=== PATIENT | female | born 1985 | race Caucasian/White ===

== ENCOUNTER 2020-02-14 21:27 | Emergency (ER) | payer OTHER ==
[2020-02-14 21:43] VITALS: BP 161/86; PULSE 94; RESP 18; TEMP 99.1
[2020-02-14] MEDS ORDERED: AMOXIC-POT CLAV 875-125MG 1 EACH TAB PO STA (22:09)
--- NOTE | 2020-02-14 23:22 | XR ---
EXAMINATION TYPE: XR hand complete bilateral DATE OF EXAM: 02/14/2020 COMPARISON: NONE HISTORY: Cat scratches TECHNIQUE: 6 views FINDINGS: 3 views of each hand were obtained. I see no fracture nor dislocation. Joint spaces are nor mal. There are no pathologic calcifications. There is no sign of radiopaque foreign body. There are n o erosions. IMPRESSION: Negative bilateral hand exam. No fracture.
--- NOTE | 2020-02-14 23:35 | ED ---
Animal Bite HPI - General Chief Complaint: Animal Bite Stated Complaint: Cat scratches Time Seen by Provider: 02/14/20 21:45 Source: patient Mode of arrival: ambulatory Limitations: no limitations - History of Present Illness Initial Comments: The patient is a 35-year-old female with no past medical she presents emergency department after she was bit by her cat. She states that she was taking it for a walk. Cat was scared and began to panic. She attempted to pick her up and that was when he began biting and scratching her bilateral hands. Reports to swelling of her left index finger. Continues to have full normal range of motion. No fevers. Denies taking any medications at home for her symptoms. Cat is up-to-date on its immunizations. Patient is right-hand dominant. There are no alleviating, precipitating or modifying factors - Related Data Previous Rx's Medication Instructions Recorded Amoxicillin/Potassium Clav 1 tab PO Q12HR #20 tab 02/14/20 [Augmentin 875-125 Tablet] Allergies Allergy/AdvReac Type Severity Reaction Status Date / Time No Known Allergies Allergy Verified 02/14/20 21:40 Review of Systems ROS Statement: Those systems with pertinent positive or pertinent negative responses have been documented in the HPI. ROS Other: All systems not noted in ROS Statement are negative. Past Medical History Past Medical History: No Reported History History of Any Multi-Drug Resistant Organisms: None Reported Additional Past Surgical History / Comment(s): cyst removal on LT foot Past Psychological History: No Psychological Hx Reported Smoking Status: Current every day smoker Past Alcohol Use History: None Reported Past Drug Use History: Marijuana General Exam Limitations: no limitations General appearance: alert, in no apparent distress Eye exam: Present: normal appearance, PERRL, EOMI. Absent: scleral icterus, conjunctival injection, periorbital swelling Respiratory exam: Present: normal lung sounds bilaterally. Absent: respiratory distress, wheezes, rales, rhonchi, stridor Cardiovascular Exam: Present: regular rate, normal rhythm, normal heart sounds. Absent: systolic murmur, diastolic murmur, rubs, gallop, clicks Extremities exam: Present: other (multiple abrasions to bilateral dorsal hands. Puncture site left index finger with associated swelling. Compartments are soft. No associated erythema or red streaking to the digits. Intact full ROM of all digits on both hands. No signs of tenosynovitis. 2+ radial and ulnar pusles. Intact sensation in the median, radial, ulnar distributions) Course Vital Signs 02/14/20 21:40 Temperature 99.1 F Pulse Rate 94 Respiratory 18 Rate Blood Pressure 161/86 O2 Sat by Pulse 100 Oximetry Medical Decision Making - Medical Decision Making Upon arrival the patient is placed in room 23. A thorough history and physical was performed. Patient's wounds were cleansed with normal saline. She was given a dose of Augmentin. X-rays performed of the bilateral hands to rule out any retained foreign body. X-rays were negative. Patient demonstrates no signs of tenosynovititis. At this time the patient will be discharged home. Strict return and discussed the patient. Tetanus is up-to-date. Helped up with her doctor in 2 days. Return to the emergency department for any new or worsening symptoms. Patient discharged home to condition Disposition Clinical Impression: Cat bite Disposition: HOME SELF-CARE Condition: Stable Instructions (If sedation given, give patient instructions): Animal Bite (ED) Additional Instructions: Please follow-up with your care doctor in 2-4 days. Return to the emergency department if your swelling gets worse with antibiotics Prescriptions: Amoxicillin/Potassium Clav [Augmentin 875-125 Tablet] 1 tab PO Q12HR #20 tab Is patient prescribed a controlled substance at d/c from ED?: No Referrals: None,Stated [Primary Care Provider] - 1-2 days Time of Disposition: 23:34
== END 2020-02-14 23:43 | disposition home or self-care (01) ==
LOC: EC 21:27
DX: S60.512A Abrasion of left hand, initial encounter (principal); S60.511A Abrasion of right hand, initial encounter; F17.200 Nicotine dependence, unspecified, uncomplicated; W55.03XA Scratched by cat, initial encounter; W55.01XA Bitten by cat, initial encounter; Y93.K1 Activity, walking an animal
CPT/HCPCS: 99283

== ENCOUNTER 2022-06-23 08:51 | Emergency (ER) | payer BC, OTHER ==
[2022-06-23 08:59] VITALS: BP 131/84; PULSE 80; RESP 18; TEMP 98.1
[2022-06-23] MEDS ORDERED: HYDROcodone/APAP 5-325MG 1 EACH TAB PO STA (09:17)
[2022-06-23] MEDS ORDERED: ACET/COD 300 MG/30 MG STARTER PACK 6 TAB BTL PO STA (09:17)
--- NOTE | 2022-06-23 09:20 | ED ---
ENT HPI - General Chief complaint: ENT Stated complaint: Facial abscess Time Seen by Provider: 06/23/22 09:00 Source: patient, RN notes reviewed Mode of arrival: ambulatory Limitations: no limitations - History of Present Illness Initial comments: 37-year-old female presents emergency Department with chief complaint of facial swelling, abscess. Patient states that she has dental pain and cervical days ago. Since worsen. Patient states that she has bad tooth and left upper. She states the swelling really increased over nighttime. Patient's current pain 03/21 patient has ALLERGY to Keflex no other ALLERGIES noted. - Related Data Previous Rx's Medication Instructions Recorded Amoxicillin/Potassium Clav 1 tab PO Q12HR #20 tab 02/14/20 [Augmentin 875-125 Tablet] Ibuprofen [Motrin] 600 mg PO Q8HR PRN #30 tab 06/23/22 Penicillin V Potassium [Pen Vee K] 500 mg PO QID #40 tablet 06/23/22 Allergies Allergy/AdvReac Type Severity Reaction Status Date / Time cephalexin [From Keflex] Allergy Nausea & Verified 06/23/22 08:59 Vomiting Review of Systems ROS Statement: Those systems with pertinent positive or pertinent negative responses have been documented in the HPI. ROS Other: All systems not noted in ROS Statement are negative. Past Medical History Past Medical History: No Reported History Additional Past Medical History / Comment(s): dermatomyositis History of Any Multi-Drug Resistant Organisms: None Reported Additional Past Surgical History / Comment(s): cyst removal on LT foot Past Psychological History: No Psychological Hx Reported Smoking Status: Current every day smoker Past Alcohol Use History: None Reported Past Drug Use History: Marijuana General Exam Limitations: no limitations General appearance: alert, in no apparent distress Head exam: Present: atraumatic, normocephalic, normal inspection ENT exam: Present: mucous membranes moist. Absent: normal exam, normal oropharynx (poor dentition, left upper swelling, dental erosion no drainable abscess) Neck exam: Present: normal inspection, full ROM. Absent: tenderness, meningismus, lymphadenopathy Respiratory exam: Present: normal lung sounds bilaterally. Absent: respiratory distress, wheezes, rales, rhonchi, stridor Cardiovascular Exam: Present: regular rate, normal rhythm, normal heart sounds. Absent: systolic murmur, diastolic murmur, rubs, gallop, clicks Course Vital Signs 06/23/22 08:56 Temperature 98.1 F Pulse Rate 80 Respiratory 18 Rate Blood Pressure 131/84 O2 Sat by Pulse 99 Oximetry Medical Decision Making - Medical Decision Making 37-year-old female presents emergency Department for dental pain patient does have notable facial swelling concern for underlying dental abscess. There is no drainable abscess. Patient started on oral antibiotics, pain control and follow-up with dentist. Disposition Clinical Impression: Dental abscess Disposition: HOME SELF-CARE Condition: Stable Instructions (If sedation given, give patient instructions): Dental Abscess (ED) Additional Instructions: Please return to the Emergency Department if symptoms worsen or any other concerns. Prescriptions: Ibuprofen [Motrin] 600 mg PO Q8HR PRN #30 tab PRN Reason: Pain Penicillin V Potassium [Pen Vee K] 500 mg PO QID #40 tablet Is patient prescribed a controlled substance at d/c from ED?: No Referrals: None,Stated [Primary Care Provider] - 1-2 days Time of Disposition: 09:20
== END 2022-06-23 09:52 | disposition home or self-care (01) ==
LOC: EC 08:51
DX: K04.7 Periapical abscess without sinus (principal); F17.200 Nicotine dependence, unspecified, uncomplicated; Z88.1 Allergy status to other antibiotic agents
CPT/HCPCS: 99283